=== PATIENT | female | born 1965 ===

== ENCOUNTER 2017-03-12 13:32 | Emergency (ER) | payer BC ==
[2017-03-12 13:50] VITALS: TEMP 98.7
[2017-03-12] MEDS ORDERED: Enalaprilat 2.5 MG/2 ML IVP STA (14:11)
[2017-03-12] MEDS ORDERED: Enalaprilat 2.5 MG/2 ML ONE (14:41)
[2017-03-12 14:46] LABS: BASO % 0.7 % (0.0-2.0); EOS # 0.1 K/uL (0.0-0.7); EOS % 2.3 % (0.0-4.0); HEMATOCRIT 37.4 % (34.0-47.0); LYMPH # 1.9 K/uL (1.0-4.3); LYMPH % 40.7 % (20.0-40.0); MEAN CELL VOLUME 82.7 fL (81.0-99.0); MEAN CORPUSCULAR HEMOGLOBIN 28.2 pg (27.0-31.0); MEAN CORPUSCULAR HGB CONC 34.1 g/dL (33.0-37.0); MEAN PLATELET VOLUME 8.7 fL (7.2-11.7); MONO # 0.3 K/uL (0.0-0.8); MONO % 6.8 % (0.0-10.0); NRBC % 0.1 % (0.0-2.0); RED CELL DISTRIBUTION WIDTH 13.9 % (11.5-14.5); WHITE BLOOD COUNT 4.7 K/uL (4.8-10.8)
[2017-03-12 14:56] LABS: CHLORIDE 100 mmol/L (98-107); POTASSIUM 3.7 mmol/L (3.6-5.2); SODIUM 138 mmol/L (132-148)
[2017-03-12 14:58] LABS: AST/SGOT 29 U/L (14-36); BILIRUBIN,TOTAL 0.6 mg/dL (0.2-1.3); CARBON DIOXIDE 28 mmol/L (22-30); GFR AFRICAN-AMERICAN > 60; TOTAL PROTEIN 8.5 g/dL (6.3-8.3)
[2017-03-12 14:59] LABS: ALKALINE PHOSPHATASE 83 U/L (38-126); ALT/SGPT 45 U/L (9-52); BLOOD UREA NITROGEN 12 mg/dL (7-17); CALCIUM 9.2 mg/dl (8.6-10.4); GLUCOSE,RANDOM 82 mg/dL (65-105); MAGNESIUM 1.8 mg/dL (1.6-2.3)
[2017-03-12 15:34] VITALS: RESP 12; O2SAT 96
--- NOTE | 2017-03-12 15:44 | CT ---
PROCEDURE: CT HEAD WITHOUT CONTRAST. HISTORY: Hypertension. Headache. COMPARISON: None available. TECHNIQUE: Axial computed tomography images were obtained through the head/brain without intravenous contrast. Radiation dose: Total exam DLP = 699.12 mGy-cm. This CT exam was performed using one or more of the following dose reduction techniques: Automated exposure control, adjustment of the mA and/or kV according to patient size, and/or use of iterative reconstruction technique. FINDINGS: HEMORRHAGE: No intracranial hemorrhage. BRAIN: No mass effect or edema. No atrophy or chronic microvascular ischemic changes. VENTRICLES: Unremarkable. No hydrocephalus. CALVARIUM: Unremarkable. PARANASAL SINUSES: Unremarkable as visualized. No significant inflammatory changes. MASTOID AIR CELLS: Unremarkable as visualized. No inflammatory changes. OTHER FINDINGS: None. IMPRESSION: Normal CT of the Head.
--- NOTE | 2017-03-12 16:05 | C.PDOC ---
History Of Present Illness Pt was sent in by her PMD due to severely elevated BP at her office today. Time Seen by Provider: 03/12/17 14:00 Chief Complaint (Nursing): High Blood Pressure History Per: Patient, Family Onset/Duration Of Symptoms: Days (4), Waxing/Waning Current Symptoms Are (Timing): Still Present Associated Symptoms: Headache Severity: Moderate Exacerbating Factor(s): Pos: None Additional History Per: Prior Records Past Medical History Reviewed: Historical Data, Nursing Documentation, Vital Signs Vital Signs: Last Vital Signs Temp 98.7 F 03/12/17 13:48 Pulse 64 03/12/17 15:30 Resp 12 03/12/17 15:30 BP 125/77 03/12/17 15:30 Pulse Ox 96 03/12/17 16:08 - Medical History PMH: HTN, Hyperlipidemia Family History: States: Unknown Family Hx - Social History Hx Alcohol Use: No Hx Substance Use: No Review Of Systems Except As Marked, All Systems Reviewed And Found Negative. Constitutional: Negative for: Fever, Weakness Cardiovascular: Negative for: Chest Pain Respiratory: Negative for: Shortness of Breath Gastrointestinal: Negative for: Vomiting, Abdominal Pain Musculoskeletal: Negative for: Back Pain Skin: Negative for: Rash Neurological: Positive for: Headache. Negative for: Weakness, Numbness, Seizures, Altered Mental Status Physical Exam - Physical Exam Appears: Non-toxic, No Acute Distress Skin: Normal Color, Warm, Dry, No Rash Head: Atraumatic, Normacephalic Eye(s): bilateral: Normal Inspection, PERRL, EOMI Neck: Normal ROM, Supple Cardiovascular: Rhythm Regular Respiratory: Normal Breath Sounds, No Accessory Muscle Use Gastrointestinal/Abdominal: Soft, No Tenderness Back: No CVA Tenderness Extremity: Normal ROM, No Pedal Edema, No Calf Tenderness Neurological/Psych: Oriented x3, Normal Speech, Normal Cognition, Normal Cranial Nerves, No Cerebellar Signs, Normal Motor, Normal Sensation ED Course And Treatment - Laboratory Results Result Diagrams: 03/12/17 14:41 03/12/17 14:41 Lab Interpretation: No Acute Changes ECG: Interpreted By Me, Viewed By Me ECG Rhythm: Sinus Rhythm ECG Interpretation: No Acute Changes Rate From EC O2 Sat by Pulse Oximetry: 96 Pulse Ox Interpretation: Normal - CT Scan/US CT head Other Rad Studies (CT/US): Read By Radiologist, Radiology Report Reviewed CT/US Interpretation: IMPRESSION: Normal CT of the Head. Progress Note: Pt is now asymptomatic. Reassessment Condition: Improved Progress - Interventions Interventions:: Observation - Medications Administered Oral: Acetaminophen, Antiemetic Intravenous: Antihypertensive - Data Reviewed Data Reviewed: Lab, Diagnostic imaging, EKG, Old records - Patient Status Patient status: Completely improved - Critical Care Citical Care: Excluding Proc Time Critical Care Time: 45 minutes - Continuity of Care Discussed patient case with:: Patient, Family-HIPPA compliant, ED Nurse, PMD Medical Decision Making Medical Decision Making: Pt is on Losartan 50mg daily for hypertension. I will increase it to 100mg daily. Disposition Counseled Patient/Family Regarding: Studies Performed, Diagnosis, Need For Followup, Rx Given - Disposition Referrals: Regine Weir MD [Medical Doctor] - Disposition: HOME/ ROUTINE Disposition Time: 16:18 Condition: IMPROVED Additional Instructions: Follow up with your doctor within 2-3 days to recheck your blood pressure. Return to the ER if you develop weakness, numbness, chest pain, shortness of breath, worsening of symptoms or if you have any other concerns. Prescriptions: Losartan [Cozaar] 100 mg PO DAILY #30 tab Instructions: Hypertension (ED) Forms: [employer] ([place]vadorean) Print Language: BENGALI - Clinical Impression Clinical Impression: Hypertensive urgency
[2017-03-12 16:20] VITALS: BP 122/69; PULSE 72
== END 2017-03-12 16:29 | disposition home or self-care (01) ==
LOC: C.ER 13:32
DX: I16.0 Hypertensive urgency (principal)